=== PATIENT | female | born 1985 | race Two or more races ===

== ENCOUNTER 2020-03-10 09:13 | Outpatient (CLI) | payer OTHER | END 2020-03-10 09:57 | disposition home or self-care (01) | LOC: MRI 09:13 → RAD 09:13 → MRI 09:15 → RAD 09:57 | PROVIDERS: ATTEND Orthopaedic Surgery | DX: M25.562 Pain in left knee (principal); M25.561 Pain in right knee | CPT/HCPCS: 73721 ==